=== PATIENT | female | born 1970 | race Caucasian/White ===

== ENCOUNTER 2017-07-13 17:55 | Emergency (ER) | payer MEDICARE, MEDICAID ==
[~2017-07-13] VITALS: Ht 152.4 cm; Wt 40.8 kg
--- NOTE | 2017-07-13 17:55 | NUR ---
ARRIVAL PT ARRIVED VIA STRETCHER BY [facility]. PT WAS AT CORRECTION EATING MASHED POTATOES WHEN PT GOT "CHOKED" PER CORRECTION STAFF. STAFF TELLS EMS PT WAS ABLE TO CLEAR FOOD ON OWN. NO ACUTE DISTRESS NOTED. SEE EMS REPORT. EDP NOTIFIED OF PT ARRIVAL.
--- NOTE | 2017-07-13 18:16 | ER.PDOC ---
General Chief Complaint: General Complaint Stated Complaint: GENERAL TRAVEL OUT OF US: No Time seen by MD: 18:00 Source: other (caregiver) Exam Limitations: physical impairment History of Present Illness Initial Comments 46 year old white female with cerebral palsy was brought in after a choking episode. While eating potato in a alf, she choked while eating mashed potato less than an hour ago. She turned blue but got better after a staff member performed a Heimlich maneuver. She is back to her normal self on presentation Timing/Duration: 1 hour Allergies: Coded Allergies: No Known Allergies (Unverified , 07/13/17) Past Medical History Medical History: other (cerebral palsy) Surgical History: no surgical history Social History Smoking: non-smoker Alcohol Use: none Drug Use: none Review of Systems Constitutional: no symptoms reported EENTM: no symptoms reported Respiratory: see HPI Cardiovascular: no symptoms reported Gastrointestinal: no symptoms reported Genitourinary: no symptoms reported Musculoskeletal: no symptoms reported Skin: no symptoms reported Physical Exam General Appearance: No Apparent Distress EENT: eyes nml inspection Neck: Non-Tender Respiratory: lungs clear, normal breath sounds, no respiratory distress, no accessory muscle use CVS: reg rate & rhythm, no murmur Gastrointestinal: Normal Bowel Sounds Skin: Normal Color Departure Time of Disposition: 18:15 Disposition: 01 HOME, SELF-CARE Impression: Primary Impression: Choking episode Condition: Stable Referrals: [facility] ASSISTANT [employer] MANAGER (PCP) PRIMARY CARE PROVIDER Additional Instructions: May go home Follow up care with home care staff NAMRATA Dennis MD Jul 13, 2017 18:16
--- NOTE | 2017-07-13 18:50 | NUR ---
PT TO CT
--- NOTE | 2017-07-13 19:40 | DIREP ---
PROCEDURE:CT SPINE THORACIC W/O COMPARISON:[facility], CT, CT CHEST W/O, 08/17/2016, 03:18 PM. INDICATIONS:RIB FRACTURE, PT WAS GIVEN THE HEIMLICH MANEUVER , Malformation of the arms, legs, and torse TECHNIQUE:Multi-planar CT images were obtained and created without intravenous contrast. FINDINGS: VERTEBRAE: Vertebral body heights are normal. PARASPINAL AREA:Normal. DISC LEVELS:Normal. ALIGNMENT:Prominent dextroscoliosis of the lower thoracic and lumbar spine. OTHER:Negative. CONCLUSION:No acute abnormalities. Dictated by: Camilo Thomas M.D. on 07/13/2017 at 07:33 PM
--- NOTE | 2017-07-13 20:00 | NUR ---
DISCHARGE DISCHARGE INSTRUCTIONS DISCUSSED. PT'S CAREGIVER VERBALIZED UNDERSTANDING. ENCOURAGED TO RETURN FOR ANY CONCERNS.
[2017-07-13 20:15] VITALS: BP 125/87
== END 2017-07-13 20:00 | disposition home or self-care (01) ==
LOC: EDBD 17:55 → ER 17:55
DX: T17.928A Food in respiratory tract, part unspecified causing other injury, initial encounter (principal); G80.9 Cerebral palsy, unspecified; X58.XXXA Exposure to other specified factors, initial encounter; Y93.89 Activity, other specified; Y92.009 Unspecified place in unspecified non-institutional (private) residence as the place of occurrence of the external cause; Y99.8 Other external cause status
CPT/HCPCS: 72128; 99284; 99285

== ENCOUNTER → 2018-01-22 | Outpatient (CLI) | payer MEDICARE, MEDICAID ==
--- NOTE | 2018-01-25 11:38 | DIREP ---
PROCEDURE: US PELVIS-transabdominal images COMPARISON: None. INDICATIONS: irreg menstruation, cerebral palsy TECHNIQUE: Pelvic ultrasound using transabdominal technique. FINDINGS: UTERUS: Size is 6.6 x 4.7 x 6.6 cm. The myometrium is homogeneous. ENDOMETRIUM: Thickness is 1.0 cm. RIGHT OVARY: Not visualized. LEFT OVARY: 3.9 x 3.0 x 2.5 cm. A simple cyst is noted measuring 2.4 x 2.3 x 2.0 cm. CUL-DE-SAC: Normal. OTHER: Negative. CONCLUSION: Limited transabdominal images show the uterus normal in appearance. A 2.4 cm simple appearing left ovarian cyst is seen. The right ovary is not visualized. No free fluid is seen. MTDD
== END | disposition home or self-care (01) ==
LOC: RAD 07:32
PROVIDERS: ATTEND Hospitalist
DX: N92.5 Other specified irregular menstruation (principal); N83.292 Other ovarian cyst, left side; G80.8 Other cerebral palsy
CPT/HCPCS: 76857

== ENCOUNTER → 2024-11-08 | Outpatient (CLI) | payer MEDICARE, MEDICAID ==
[~2024-11-08] MED LIST: BACL10TA PO; CALC-98 PO; CYCL5TAB4 PO; DOCU-15 PO; GUAI-489 PO; HYDR-3105 PO; LACT10SO55 PO; LEVO-16 PO; LOPE2CAP PO; Levofloxacin PO; MULT-307 PO; NA P133E2 RC; OMEP20CA19 PO; PANT40TA6 PO; POLY2500 PO; PRED10TA PO; TRAM100T11 PO; [UNRECOGNIZED DRUG - CODE] PO; [UNRECOGNIZED DRUG - CODE] PO; [UNRECOGNIZED DRUG - CODE] PO; [UNRECOGNIZED DRUG - CODE] PO; [UNRECOGNIZED DRUG - CODE] PO; [UNRECOGNIZED DRUG - CODE] TP
== END | disposition home or self-care (01) ==
LOC: RAD 13:27
PROVIDERS: ATTEND Internal Medicine
DX: R01.1 Cardiac murmur, unspecified (principal)
CPT/HCPCS: 93306

== ENCOUNTER 2024-11-09 14:42 | Inpatient (IN) | payer MEDICARE, MEDICAID ==
[~2024-11-09] VITALS: Ht 149.9 cm; Wt 30.9 kg
[2024-11-09] VITALS (13 sets, daily range): BP systolic 108–153; BP diastolic 73–93; PULSE 83–122; RESP 12–23; TEMP 97.1–98; O2SAT 94–99
[~2024-11-09 14:42] MED LIST changes: -GUAI-489 PO; -HYDR-3105 PO; -LACT10SO55 PO; -LEVO-16 PO; -LOPE2CAP PO; -NA P133E2 RC; -PANT40TA6 PO; -PRED10TA PO; -[UNRECOGNIZED DRUG - CODE] PO; -[UNRECOGNIZED DRUG - CODE] PO; -[UNRECOGNIZED DRUG - CODE] PO; -[UNRECOGNIZED DRUG - CODE] PO; -[UNRECOGNIZED DRUG - CODE] TP
[2024-11-09 15:20] LABS: BASOPHIL % 0.1 % (0.1-1.2); HEMATOCRIT(ML) 52.2 % (36.0-46.0); LYMPHOCYTES # 0.67 10^3/uL1 (1.0-4.8); LYMPHOCYTES % 4.6 % (24.0-44.0); MEAN CORP HGB 29.9 pg (26-34); MEAN CORP VOLUME 93.4 fL (78-100); MONOCYTES # 0.6 10^3/uL (0.3-0.8); MONOCYTES % 3.9 % (5.0-12.0); NEUTROPHIL # 13.4 10^3/uL (1.8-7.7); NEUTROPHILS % 91.3 % (41.0-85.0); PLATELET COUNT 238 10^3/uL (150-400); RED BLOOD CELL 5.59 10^6/uL (4.00-5.20); RED CELL DISTRIBUTION WIDTH 12.6 % (11.5-14.5); WHITE BLOOD CELL 14.7 10^3/uL (4.5-11.0)
[2024-11-09 15:24] LABS: +ADD MANUAL DIFF(NO CHRG) NO; HEMOGLOBIN 16.7 g/dL (12.0-15.0)
[2024-11-09 15:38] LABS: ALBUMIN/GLOBULIN RATIO 0.888; ANION GAP 20.7; BUN/CREATININE RATIO 34.93 (10.0-20.0); CALCIUM 11.2 mg/dL (8.4-10.5); CARBON DIOXIDE 22.1 mmol/L (20.0-32); CREATININE SERUM 0.83 mg/dL (0.59-1.40); EST GFR, NON-AA 71.6 (>/=60); POTASSIUM 4.8 mmol/L (3.6-5.2)
[2024-11-09 15:41] LABS: INFLUENZA VIRUS A ANTIGEN NEGATIVE (NEG); INFLUENZA VIRUS B ANTIGEN NEGATIVE (NEG)
[2024-11-09] MEDS ORDERED: LACTATED RINGERS 1,000 ML ONE (16:21)
[2024-11-09] MEDS ORDERED: NS 100ML 100 ML IV ONE ×2 (16:22→22:17)
[2024-11-09] MEDS: LACTATED RINGERS 1,200 ML IV SCH (16:25)
[2024-11-09] MEDS: ZOSYN 3.375 GM 3.375 GM in NS 100ML 100 ML IV SCH (16:26)
[2024-11-09] MEDS ORDERED: VANCOMYCIN 1 GRAM/200 ML BAG 200 ML IV ONE (16:45)
[2024-11-09] MEDS: VANCOMYCIN 1 GRAM/200 ML BAG 200 ML IV SCH (16:47)
[2024-11-09] MEDS ORDERED: [UNRECOGNIZED DRUG - CODE] TP (19:44)
[2024-11-09] MEDS ORDERED: HYDR-3105 PO (19:44)
[2024-11-09] MEDS ORDERED: [UNRECOGNIZED DRUG - CODE] PO (19:44)
[2024-11-09] MEDS ORDERED: LACT10SO55 PO (19:44)
[2024-11-09] MEDS ORDERED: [UNRECOGNIZED DRUG - CODE] PO (19:44)
[2024-11-09] MEDS ORDERED: [UNRECOGNIZED DRUG - CODE] PO (19:44)
[2024-11-09] MEDS ORDERED: NA P133E2 RC (19:44)
[2024-11-09] MEDS ORDERED: ZOFRAN IV PRN (20:00)
[2024-11-09] MEDS: NS 1000ML 1,000 ML IV SCH (20:00)
[2024-11-09] MEDS ORDERED: ROCEPHIN IM SCH (20:30)
[2024-11-09] MEDS: DUONEB 0.5-3(2.5) MG/3 ML IH SCH (21:00)
[2024-11-09] MEDS ORDERED: ROCEPHIN ONE (22:17)
[2024-11-09] MEDS: ROCEPHIN 2,000 MG in NS 100ML 100 ML IV SCH (22:21)
[2024-11-09] MEDS: DECADRON IV SCH (22:21)
[2024-11-09] MEDS ORDERED: KEPPRA IV ONE (22:22)
[2024-11-09 22:23] LABS: C-REACTIVE PROTEIN 8.4 mg/dL (0.00-5.00)
[2024-11-09] MEDS: KEPPRA IV SCH (22:55)
[2024-11-10] VITALS (111 sets, daily range): BP systolic 84–161; BP diastolic 48–94; PULSE 86–131; RESP 10–43; TEMP 97.7–98.4; O2SAT 76–100
[2024-11-10] MEDS ORDERED: TORADOL ONE (00:49)
[2024-11-10] MEDS: TORADOL IV PRN (01:11)
[2024-11-10] MEDS ORDERED: FLAGYL ONE (05:47)
[2024-11-10 06:55] LABS: BASOPHIL % 0.1 % (0.1-1.2); HEMATOCRIT(ML) 40.2 % (36.0-46.0); HEMOGLOBIN 13.3 g/dL (12.0-15.0); LYMPHOCYTES # 1.09 10^3/uL1 (1.0-4.8); LYMPHOCYTES % 12.2 % (24.0-44.0); MEAN CORP HGB 30.2 pg (26-34); MEAN CORP HGB CONCENTRATION 33.1 g/dL (33-36.5); MEAN CORP VOLUME 91.2 fL (78-100); MONOCYTES # 0.5 10^3/uL (0.3-0.8); MONOCYTES % 5.7 % (5.0-12.0); NEUTROPHIL # 7.4 10^3/uL (1.8-7.7); RED BLOOD CELL 4.41 10^6/uL (4.00-5.20); RED CELL DISTRIBUTION WIDTH 12.5 % (11.5-14.5)
[2024-11-10] MEDS: FLAGYL PO SCH (06:56)
[2024-11-10 07:22] LABS: ALBUMIN(ML) 2.6 g/dL (3.4-5.0); ALBUMIN/GLOBULIN RATIO 0.787; ANION GAP 14.3; BUN/CREATININE RATIO 37.03 (10.0-20.0); CALCIUM 8.4 mg/dL (8.4-10.5); CARBON DIOXIDE 25.6 mmol/L (20.0-32); CREATININE SERUM 0.54 mg/dL (0.59-1.40); EST GFR, NON-AA 117.6 (>/=60); POTASSIUM 3.9 mmol/L (3.6-5.2)
[2024-11-10] MEDS ORDERED: NS 100ML 100 ML IV ONE (08:51)
[2024-11-10] MEDS ORDERED: ROCEPHIN ONE (08:51)
[2024-11-10] MEDS ORDERED: MAXIPIME 1 GM in NS 100ML 100 ML IV SCH (09:00)
[2024-11-10] MEDS: PROTONIX PO SCH (09:03)
[2024-11-10] MEDS: LOVENOX SQ SCH (09:05)
[2024-11-10] MEDS: VANCOMYCIN 1 GRAM/200 ML BAG 200 ML IV SCH (09:30)
[2024-11-10] MEDS ORDERED: KEPPRA 100 ML IV SCH (10:30)
[2024-11-10] MEDS ORDERED: NS 250ML 250 ML ONE (10:46)
[2024-11-10] MEDS ORDERED: VANCOMYCIN HCL 1 GM ONE (10:46)
[2024-11-10] MEDS ORDERED: NORCO 10MG PO ONE (13:35)
[2024-11-10] MEDS: NORCO 10MG PO PRN (13:39)
[2024-11-10] MEDS: KEPPRA IV SCH (13:42)
[2024-11-10] MEDS: MORPHINE SULFATE IV ONE (15:00)
[2024-11-10] MEDS ORDERED: MORPHINE SULFATE ONE (15:05)
[2024-11-10] MEDS: ROCEPHIN 2 GM-D5W BAG 50 ML IV SCH (21:28)
[2024-11-11] VITALS (89 sets, daily range): BP systolic 116–178; BP diastolic 59–109; PULSE 88–126; RESP 17–65; TEMP 97.5–98.4; O2SAT 90–96
[2024-11-11 05:47] LABS: HEMOGLOBIN 11.1 g/dL (12.0-15.0); LYMPHOCYTES # 1.01 10^3/uL1 (1.0-4.8); LYMPHOCYTES % 11.3 % (24.0-44.0); MEAN CORP HGB 30.3 pg (26-34); MEAN CORP HGB CONCENTRATION 33.6 g/dL (33-36.5); MEAN CORP VOLUME 90.2 fL (78-100); MONOCYTES # 0.6 10^3/uL (0.3-0.8); MONOCYTES % 6.8 % (5.0-12.0); NEUTROPHIL # 7.3 10^3/uL (1.8-7.7); NEUTROPHILS % 81.7 % (41.0-85.0); PLATELET COUNT 187 10^3/uL (150-400); RED BLOOD CELL 3.66 10^6/uL (4.00-5.20); RED CELL DISTRIBUTION WIDTH 12.6 % (11.5-14.5); WHITE BLOOD CELL 8.9 10^3/uL (4.5-11.0)
[2024-11-11 05:58] LABS: +ADD MANUAL DIFF(NO CHRG) NO
[2024-11-11 06:20] LABS: ALBUMIN(ML) 2.6 g/dL (3.4-5.0); ALBUMIN/GLOBULIN RATIO 0.838; ANION GAP 13.4; BUN/CREATININE RATIO 20.45 (10.0-20.0); CALCIUM 8.2 mg/dL (8.4-10.5); CARBON DIOXIDE 26.3 mmol/L (20.0-32); CREATININE SERUM 0.44 mg/dL (0.59-1.40); POTASSIUM 2.7 mmol/L (3.6-5.2)
[2024-11-11] MEDS ORDERED: VANCOMYCIN HCL 1 GM ONE (10:08)
[2024-11-11] MEDS ORDERED: NS 250ML 250 ML ONE (10:08)
[2024-11-11] MEDS: VANCOMYCIN HCL 1 GM in NS 250ML 250 ML IV SCH (10:14)
[2024-11-11] MEDS: KCL 20 MEQ/100 ML SOL 100 ML IV ONE (15:43)
[2024-11-11] MEDS: KLOR-CON 10 PO STA (15:46)
[2024-11-11] MEDS: NORCO 10MG PO SCH (21:21)
[2024-11-12] VITALS (56 sets, daily range): BP systolic 143–173; BP diastolic 71–110; PULSE 80–127; RESP 15–80; TEMP 97.7–98.8; O2SAT 89–96
[2024-11-12 05:30] LABS: HEMOGLOBIN 12.3 g/dL (12.0-15.0); LYMPHOCYTES # 0.86 10^3/uL1 (1.0-4.8); LYMPHOCYTES % 9.1 % (24.0-44.0); MEAN CORP HGB 30.2 pg (26-34); MEAN CORP HGB CONCENTRATION 33.2 g/dL (33-36.5); MEAN CORP VOLUME 90.9 fL (78-100); MONOCYTES # 0.2 10^3/uL (0.3-0.8); MONOCYTES % 2.2 % (5.0-12.0); NEUTROPHIL # 8.4 10^3/uL (1.8-7.7); NEUTROPHILS % 88.7 % (41.0-85.0); PLATELET COUNT 216 10^3/uL (150-400); RED BLOOD CELL 4.07 10^6/uL (4.00-5.20); RED CELL DISTRIBUTION WIDTH 12.4 % (11.5-14.5); WHITE BLOOD CELL 9.4 10^3/uL (4.5-11.0)
[2024-11-12 05:31] LABS: +ADD MANUAL DIFF(NO CHRG) NO
[2024-11-12 06:01] LABS: ALBUMIN(ML) 2.7 g/dL (3.4-5.0); ALBUMIN/GLOBULIN RATIO 0.771; ANION GAP 12.9; BUN/CREATININE RATIO 22.5 (10.0-20.0); CALCIUM 8.6 mg/dL (8.4-10.5); CARBON DIOXIDE 25.5 mmol/L (20.0-32); CREATININE SERUM 0.4 mg/dL (0.59-1.40); EST GFR, NON-AA 166.3 (>/=60); POTASSIUM 3.4 mmol/L (3.6-5.2)
[2024-11-12] MEDS ORDERED: NS 250ML 250 ML ONE (10:41)
[2024-11-12] MEDS ORDERED: VANCOMYCIN HCL 1 GM ONE (10:41)
[2024-11-12] MEDS: APRESOLINE IV STA (23:54)
[2024-11-13] VITALS (7 sets, daily range): BP systolic 136–157; BP diastolic 90–97; PULSE 87–105; RESP 16–20; TEMP 97.8–99.3; O2SAT 94–96
[2024-11-13 06:20] LABS: EOSINOPHIL % 0.1 % (0.0-5.0); HEMOGLOBIN 13.7 g/dL (12.0-15.0); LYMPHOCYTES # 2.68 10^3/uL1 (1.0-4.8); LYMPHOCYTES % 19.1 % (24.0-44.0); MEAN CORP HGB 29.8 pg (26-34); MEAN CORP HGB CONCENTRATION 33.4 g/dL (33-36.5); MEAN CORP VOLUME 89.1 fL (78-100); MONOCYTES # 1.1 10^3/uL (0.3-0.8); MONOCYTES % 7.8 % (5.0-12.0); NEUTROPHIL # 10.2 10^3/uL (1.8-7.7); NEUTROPHILS % 72.8 % (41.0-85.0); PLATELET COUNT 276 10^3/uL (150-400); RED CELL DISTRIBUTION WIDTH 12.2 % (11.5-14.5)
[2024-11-13 06:37] LABS: +ADD MANUAL DIFF(NO CHRG) YES
[2024-11-13 06:38] LABS: LYMPHOCYTE 30 % (25-36); MONOCYTE 3 % (3-9); SEGMENTED NEUTROPHILS 67 % (31-76); TOTAL CELLS COUNTED 100 #CELLS
[2024-11-13 06:58] LABS: ANION GAP 11.3; BUN/CREATININE RATIO 13.33 (10.0-20.0); CALCIUM 8.4 mg/dL (8.4-10.5); CARBON DIOXIDE 27.7 mmol/L (20.0-32); CREATININE SERUM 0.6 mg/dL (0.59-1.40); EST GFR, NON-AA 104.2 (>/=60)
[2024-11-13] MEDS ORDERED: KCL 20 MEQ/100 ML SOL 100 ML IV ONE (07:11)
[2024-11-13] MEDS: KCL 20 MEQ/100 ML SOL 100 ML IV ONE ×2 (07:30→15:10)
[2024-11-13] MEDS ORDERED: MAGNESIUM 2 GRAM/50ML 50 ML IV ONE (12:39)
[2024-11-13] MEDS: MAGNESIUM 2 GRAM/50ML 50 ML IV ONE (12:41)
[2024-11-13] MEDS: LIORESAL PO SCH (15:10)
[2024-11-13] MEDS ORDERED: COLACE PO ONE (19:49)
[2024-11-13] MEDS ORDERED: FLEXERIL ONE (19:49)
[2024-11-13] MEDS ORDERED: APRESOLINE IV PRN (20:30)
[2024-11-13] MEDS: FLEXERIL PO SCH (20:54)
[2024-11-13] MEDS: COLACE PO SCH (20:54)
[2024-11-14] VITALS (8 sets, daily range): BP systolic 147–156; BP diastolic 85–96; PULSE 98–129; RESP 18–24; TEMP 97.6–99.2; O2SAT 93–96
[2024-11-14 07:36] LABS: EOSINOPHIL # 0.2 10^3/uL (0.0-0.2); EOSINOPHIL % 1.8 % (0.0-5.0); HEMATOCRIT(ML) 40.2 % (36.0-46.0); HEMOGLOBIN 13.5 g/dL (12.0-15.0); LYMPHOCYTES # 3.47 10^3/uL1 (1.0-4.8); LYMPHOCYTES % 29.8 % (24.0-44.0); MEAN CORP HGB 29.9 pg (26-34); MEAN CORP HGB CONCENTRATION 33.6 g/dL (33-36.5); MEAN CORP VOLUME 89.1 fL (78-100); MONOCYTES # 1.3 10^3/uL (0.3-0.8); NEUTROPHIL # 6.7 10^3/uL (1.8-7.7); NEUTROPHILS % 57.2 % (41.0-85.0); PLATELET COUNT 292 10^3/uL (150-400); RED BLOOD CELL 4.51 10^6/uL (4.00-5.20); RED CELL DISTRIBUTION WIDTH 12.2 % (11.5-14.5); WHITE BLOOD CELL 11.7 10^3/uL (4.5-11.0)
[2024-11-14 07:37] LABS: +ADD MANUAL DIFF(NO CHRG) YES
[2024-11-14 07:49] LABS: ALBUMIN(ML) 2.8 g/dL (3.4-5.0); ALBUMIN/GLOBULIN RATIO 0.875; ANION GAP 9.8; BUN/CREATININE RATIO 12.76 (10.0-20.0); CALCIUM 8.1 mg/dL (8.4-10.5); CARBON DIOXIDE 27.9 mmol/L (20.0-32); CREATININE SERUM 0.47 mg/dL (0.59-1.40); EST GFR, NON-AA 138.1 (>/=60); POTASSIUM 2.7 mmol/L (3.6-5.2)
[2024-11-14 08:00] LABS: LYMPHOCYTE 24 % (25-36); MONOCYTE 10 % (3-9); SEGMENTED NEUTROPHILS 64 % (31-76); TOTAL CELLS COUNTED 100 #CELLS
[2024-11-14] MEDS: KCL 20 MEQ/100 ML SOL 100 ML IV ONE (09:04)
[2024-11-14] MEDS ORDERED: NS 250ML 250 ML ONE (09:28)
[2024-11-14] MEDS ORDERED: VANCOMYCIN HCL 750 MG ONE (09:28)
[2024-11-14] MEDS: NS IV SCH (09:31)
[2024-11-14] MEDS: VANCOMYCIN HCL IV SCH (09:31)
[2024-11-14] MEDS: DUONEB 0.5-3(2.5) MG/3 ML IH PRN (11:01)
[2024-11-14] MEDS: KCL 20 MEQ/100 ML SOL 100 ML IV SCH (14:30)
[2024-11-15] VITALS (7 sets, daily range): BP systolic 142–165; BP diastolic 86–95; PULSE 100–120; RESP 18–22; TEMP 97.8–98.3; O2SAT 93–95
[2024-11-15 06:44] LABS: ANION GAP 14.9; CALCIUM 8.6 mg/dL (8.4-10.5); CARBON DIOXIDE 27.2 mmol/L (20.0-32); CREATININE SERUM 0.5 mg/dL (0.59-1.40); EST GFR, NON-AA 128.6 (>/=60); POTASSIUM 3.1 mmol/L (3.6-5.2)
[2024-11-15 06:46] LABS: BASOPHIL % 0.1 % (0.1-1.2); EOSINOPHIL # 0.2 10^3/uL (0.0-0.2); EOSINOPHIL % 1.1 % (0.0-5.0); HEMATOCRIT(ML) 40.7 % (36.0-46.0); HEMOGLOBIN 13.4 g/dL (12.0-15.0); LYMPHOCYTES # 2.17 10^3/uL1 (1.0-4.8); MEAN CORP HGB 29.6 pg (26-34); MEAN CORP HGB CONCENTRATION 32.9 g/dL (33-36.5); MONOCYTES # 1.4 10^3/uL (0.3-0.8); MONOCYTES % 8.7 % (5.0-12.0); NEUTROPHIL # 11.8 10^3/uL (1.8-7.7); NEUTROPHILS % 75.8 % (41.0-85.0); PLATELET COUNT 317 10^3/uL (150-400); RED BLOOD CELL 4.52 10^6/uL (4.00-5.20); RED CELL DISTRIBUTION WIDTH 12.6 % (11.5-14.5); WHITE BLOOD CELL 15.6 10^3/uL (4.5-11.0)
[2024-11-15 06:52] LABS: +ADD MANUAL DIFF(NO CHRG) YES
[2024-11-15 08:53] LABS: BAND NEUTROPHILS 1 % (2-6); EOSINOPHIL 1 % (1-4); LYMPHOCYTE 11 % (25-36); MONOCYTE 8 % (3-9); MYELOCYTES 1 %; SEGMENTED NEUTROPHILS 75 % (31-76); TOTAL CELLS COUNTED 100 #CELLS
[2024-11-15 08:54] LABS: ANISOCYTOSIS 1+ (NEGATIVE); POIKILOCYTOSIS 1+ (NEGATIVE)
[2024-11-15] MEDS ORDERED: VANCOMYCIN HCL 750 MG ONE (09:08)
[2024-11-15] MEDS: MUCINEX PO SCH (11:30)
[2024-11-15] MEDS: LEVAQUIN PO SCH (12:57)
[2024-11-16 00:10] VITALS: RESP 20; O2SAT 94
[2024-11-16 00:36] VITALS: BP 149/92; PULSE 110; RESP 20; TEMP 98.6; O2SAT 92
[2024-11-16 04:59] VITALS: BP 155/93; PULSE 110; RESP 20; TEMP 98.5; O2SAT 95
[2024-11-16 06:55] LABS: BASOPHIL % 0.1 % (0.1-1.2); EOSINOPHIL % 0.3 % (0.0-5.0); HEMATOCRIT(ML) 39.1 % (36.0-46.0); HEMOGLOBIN 13.1 g/dL (12.0-15.0); LYMPHOCYTES # 1.59 10^3/uL1 (1.0-4.8); LYMPHOCYTES % 11.8 % (24.0-44.0); MEAN CORP HGB 30.2 pg (26-34); MEAN CORP HGB CONCENTRATION 33.5 g/dL (33-36.5); MEAN CORP VOLUME 90.1 fL (78-100); MONOCYTES # 0.9 10^3/uL (0.3-0.8); MONOCYTES % 6.3 % (5.0-12.0); NEUTROPHILS % 81.3 % (41.0-85.0); PLATELET COUNT 305 10^3/uL (150-400); RED BLOOD CELL 4.34 10^6/uL (4.00-5.20); RED CELL DISTRIBUTION WIDTH 12.7 % (11.5-14.5); WHITE BLOOD CELL 13.5 10^3/uL (4.5-11.0)
[2024-11-16 06:59] LABS: +ADD MANUAL DIFF(NO CHRG) NO
[2024-11-16 07:06] LABS: ANION GAP 14.3; BUN/CREATININE RATIO 18.18 (10.0-20.0); CALCIUM 8.5 mg/dL (8.4-10.5); CARBON DIOXIDE 25.5 mmol/L (20.0-32); CREATININE SERUM 0.44 mg/dL (0.59-1.40); POTASSIUM 2.8 mmol/L (3.6-5.2)
[2024-11-16 07:38] VITALS: BP 133/88; PULSE 117; RESP 16; TEMP 100.1; O2SAT 95
[2024-11-16] MEDS ORDERED: [UNRECOGNIZED DRUG - CODE] PO (11:33)
[2024-11-16] MEDS ORDERED: PRED10TA PO (11:33)
[2024-11-16] MEDS ORDERED: PANT40TA6 PO (11:33)
[2024-11-16] MEDS ORDERED: LEVO-16 PO (11:33)
[2024-11-16 12:11] VITALS: BP 111/83; PULSE 113; RESP 22; TEMP 99.5; O2SAT 93
[2024-11-16] MEDS: KLOR-CON 10 PO SCH (13:00)
[2024-11-16] MEDS: IMODIUM PO PRN (13:00)
[2024-11-16] MEDS ORDERED: KLOR-CON 10 PO ONE (13:26)
[2024-11-16] MEDS ORDERED: LOPE2CAP PO (13:30)
[2024-11-16] MEDS ORDERED: GUAI-489 PO (13:30)
[2024-11-16 13:47] VITALS: BP 111/83; PULSE 113; RESP 22; TEMP 99.5; O2SAT 93
== END 2024-11-16 13:47 | disposition home or self-care (01) | DRG 871 ==
LOC: ER 14:42 → OBS 16:25 → OBSVTOIN 16:25 → ICU 21:14 → MS 11-12 22:38
PROVIDERS: ADMIT Student in an Organized Health Care Education/Training Program; ATTEND Student in an Organized Health Care Education/Training Program
DX: A41.9 Sepsis, unspecified organism (principal); U07.1 COVID-19; N17.9 Acute kidney failure, unspecified; N39.0 Urinary tract infection, site not specified; E87.20 Acidosis, unspecified; E86.0 Dehydration; D64.9 Anemia, unspecified; K52.9 Noninfective gastroenteritis and colitis, unspecified; E87.6 Hypokalemia; E83.51 Hypocalcemia; K21.9 Gastro-esophageal reflux disease without esophagitis; G80.9 Cerebral palsy, unspecified; G89.29 Other chronic pain; Z72.89 Other problems related to lifestyle; Z79.899 Other long term (current) drug therapy
CPT/HCPCS: 36415; 70360; 70450; 71045; 71250; 74176; 80048; 80053; 80202; 83605; 83630; 83735; 84145; 85025; 85651; 86140; 87040; 87070; 87324; 87426; 87637; 87804; 87880; 94640; 99285; A6212; G0378; J0360; J0692; J0696; J1100; J1650; J1885; J1953; J1956; J3370; J3371; J3475; J3480; J3490; J7030; J7050; J7120; 87230

== ENCOUNTER 2024-11-09 14:42 | Emergency (ER) | payer MEDICARE, MEDICAID ==
[2024-11-09] MEDS ORDERED: [UNRECOGNIZED DRUG - CODE] PO (19:44)
[2024-11-09] MEDS ORDERED: HYDR-3105 PO (19:44)
[2024-11-09] MEDS ORDERED: [UNRECOGNIZED DRUG - CODE] PO (19:44)
[2024-11-09] MEDS ORDERED: [UNRECOGNIZED DRUG - CODE] PO (19:44)
[2024-11-09] MEDS ORDERED: LACT10SO55 PO (19:44)
[2024-11-09] MEDS ORDERED: [UNRECOGNIZED DRUG - CODE] TP (19:44)
[2024-11-09] MEDS ORDERED: NA P133E2 RC (19:44)
== END 2024-11-09 16:37 | disposition admitted as inpatient to this hospital (09) ==
LOC: ER 14:42
DX: E86.0 Dehydration (principal); R19.7 Diarrhea, unspecified; Z20.822 Contact with and (suspected) exposure to COVID-19
CPT/HCPCS: 99285; 71045; 87426; 80053; 85025; 36415; 87040; 83605; 87804 ×2; 87324; 83630; 87070; J7120; 87230

== ENCOUNTER → 2024-11-29 | Outpatient (CLI) | payer MEDICARE, MEDICAID ==
[~2024-11-29] MED LIST changes: +GUAI-489 PO; +HYDR-3105 PO; +LACT10SO55 PO; +LEVO-16 PO; +LOPE2CAP PO; +NA P133E2 RC; +PANT40TA6 PO; +PRED10TA PO; +[UNRECOGNIZED DRUG - CODE] PO; +[UNRECOGNIZED DRUG - CODE] PO; +[UNRECOGNIZED DRUG - CODE] PO; +[UNRECOGNIZED DRUG - CODE] PO; +[UNRECOGNIZED DRUG - CODE] TP
[2024-11-29 17:21] LABS: BASOPHIL % 0.5 % (0.1-1.2); EOSINOPHIL # 0.1 10^3/uL (0.0-0.2); EOSINOPHIL % 1.6 % (0.0-5.0); HEMATOCRIT(ML) 48.3 % (36.0-46.0); LYMPHOCYTES # 1.59 10^3/uL1 (1.0-4.8); LYMPHOCYTES % 28.7 % (24.0-44.0); MEAN CORP HGB 29.9 pg (26-34); MEAN CORP HGB CONCENTRATION 31.1 g/dL (33-36.5); MEAN CORP VOLUME 96.2 fL (78-100); MONOCYTES # 0.4 10^3/uL (0.3-0.8); MONOCYTES % 7.4 % (5.0-12.0); NEUTROPHIL # 3.4 10^3/uL (1.8-7.7); NEUTROPHILS % 61.8 % (41.0-85.0); PLATELET COUNT 139 10^3/uL (150-400); RED BLOOD CELL 5.02 10^6/uL (4.00-5.20); RED CELL DISTRIBUTION WIDTH 13.5 % (11.5-14.5); WHITE BLOOD CELL 5.5 10^3/uL (4.5-11.0)
[2024-11-29 17:24] LABS: +ADD MANUAL DIFF(NO CHRG) NO
[2024-11-29 17:52] LABS: ALBUMIN(ML) 3.3 g/dL (3.4-5.0); ALBUMIN/GLOBULIN RATIO 0.804; ANION GAP 9.3; BUN/CREATININE RATIO 27.58 (10.0-20.0); CALCIUM 8.9 mg/dL (8.4-10.5); CREATININE SERUM 0.58 mg/dL (0.59-1.40); EST GFR, NON-AA 108.3 (>/=60); POTASSIUM 4.3 mmol/L (3.6-5.2)
== END | disposition home or self-care (01) ==
LOC: LAB 16:57
PROVIDERS: ATTEND Nurse Practitioner Family
DX: R53.1 Weakness (principal); R19.7 Diarrhea, unspecified
CPT/HCPCS: 36415; 80053; 85025

== ENCOUNTER → 2025-04-25 | Outpatient (CLI) | payer MEDICARE, MEDICAID | END | disposition home or self-care (01) | LOC: RAD 15:15 | PROVIDERS: ATTEND Nurse Practitioner Family | DX: M17.0 Bilateral primary osteoarthritis of knee (principal); M62.462 Contracture of muscle, left lower leg; M62.461 Contracture of muscle, right lower leg | CPT/HCPCS: 72170; 73560 ==